=== PATIENT | male | born 1970 | race American Indian/Alaskan Native ===

== ENCOUNTER 2022-10-11 10:43 | Outpatient (REF) | payer MEDICARE, MEDICAID, SELFPAY ==
--- NOTE | ~2022-10-11 | XR_ITS ---
EXAMINATION: XR CHEST CLINICAL INFORMATION: Chronic cough COMPARISON: None available. TECHNIQUE: 2 views of the chest were obtained. FINDINGS: No significant abnormality is noted involving the heart, lungs, mediastinum, bony thorax or soft tissues. XR/XR chest 2V IMPRESSION: Unremarkable examination.
[2022-10-11 12:28] LABS: Mean Corpuscular HGB Conc 33.3 g/dl (31.0-36.0); Mean Corpuscular Volume 95.9 fL (80.0-98.0); Mean Platelet Volume 11.1 fL (9.4-12.4); Platelet Count 179 X10*3/uL (160-400); Red Blood Count 4.69 X10*6/uL (4.60-5.80); Red Cell Distribution Width 11.9 % (11.0-16.0); White Blood Count 6.7 X10*3/uL (4.8-10.8)
[2022-10-11 13:49] LABS: Prostate Specific Antigen Scr 0.37 ng/mL (<0.05-4.0)
[2022-10-11 13:54] LABS: Alanine Aminotransferase 34 U/L (0-40); Albumin Level 4.1 g/dL (3.5-5.0); Alkaline Phosphatase 53 U/L (39-117); Anion Gap 15 (12-20); Aspartate Amino Transferase 28 U/L (5-37); Bilirubin Total 0.5 mg/dL (0.0-1.0); Blood Urea Nitrogen 13 mg/dL (9-16); Calcium 9.4 mg/dL (8.4-10.2); Carbon Dioxide 19 mmol/L (22-29); Chloride 109 mmol/L (96-108); Estimated Glomerular Filt Rate > 60; Glucose Fasting 82 mg/dL (60-99); Potassium 4.3 mmol/L (3.3-5.1); Sodium 139 mmol/L (135-145); Total Protein 6.9 g/dL (6.5-8.0)
== END 2022-10-11 10:44 | disposition home or self-care (01) ==
LOC: HO.XRAY 10:43
PROVIDERS: PCP Physician Assistant; Visit Provider Physician Assistant
DX: Z13.1 Encounter for screening for diabetes mellitus (principal); Z12.5 Encounter for screening for malignant neoplasm of prostate; R05.3 Chronic cough
CPT/HCPCS: 36415; 71046; 80053; 84153; 85027

== ENCOUNTER 2023-12-11 13:48 | Outpatient (AMB) | payer MEDICARE, SELFPAY ==
--- NOTE | 2023-12-11 13:52 | MHC.PC.OV ---
Vital Signs 12/11/23 13:57 Height 5 ft 10.5 in Weight 144 lb 2 oz BMI 20.4 BP 142/90 H Blood Pressure Location Lt brachial Position Sitting Pulse 102 H Pulse Source Pulse Oximeter Pulse Oximetry (%) 98 Oxygen Delivery Method Room Air Intake Visit Reasons: PE - see comments Intake Note: Patient is here today for a physical. Turf Keeper Required: No Accompanied by: Significant Other Allergies carisoprodol [From Soma] Adverse Reaction (Intermediate, Verified 12/11/23 14:02) Lethargy Medication List - Last Reconciled 12/11/23 by Kwasi Kim PA-C albuterol sulfate 90 mcg/actuation 1 inh inhalation QID 30 days budesonide-formoterol 80-4.5 mcg/actuation (Symbicort) 1 inh inhalation BID 30 days dextromethorphan-guaifenesin 5-100 mg/5 mL 10 mL PO Q4-8H PRN 30 days lamotrigine 200 mg PO DAILY 90 days loratadine 10 mg PO DAILY 90 days olanzapine 20 mg PO DAILY 90 days sildenafil 50 mg PO DAILY 90 days Tobacco use date assessed: 12/11/23 Dental Screening Dental Screen Date: 12/11/23 Did you have a dental visit in the last 12 months?: No Did you have a dental problem in the last 6 months where you did not have access to dental care?: No Was dental information given to patient?: Patient declined HPI PE - see comments HPI Details Ye is a 52 -year-old male here today for an annual physical. Patient has a past medical history of anxiety, erectile dysfunction, , tobacco dependency, chronic lumbar spine pain , Bipolar, PTSD. Asthma: reports a chronic cough with some productive sputum. He does report continues to smoke cigarettes. He has stopped using E cigarettes to which he felt has done damage to his lungs. He does use an albuterol inhaler and Symbicort on a p.r.n. basis He reports he is not able to walk as far as he used to without any shortness of breath. .. ..Bipolar disorder:? He has lost his follow-up with his psychiatrist and now has PCP managing his lamotrigine.? He feels his mood has been stable for the past 20 years and would like to stay as current dose. He does have an element of agoraphobia though this has been better as of late. --> he reports he would like to start weaning down on doses of his mental health medications as he feels that his mental health has been in a much better place. He is better relationships with family and loved one and does not feel he needs high doses of antipsychotic and mood stabilizers anymore. . ? .. ? Lumbar spine pain: Patient is followed by [facility] , wears back brace in uses [id number] meds for pain?. Colorectal cancer screening: Had a positive Cologuard in 2022, has yet to follow up with Gastroenterology in declines my offer to be referred. He is not interested in colonoscopy. He is willing to do Cologuard again 2025. Vaccines: Up-to-date with tetanus vaccine, declines flu, COVID pneumonia vaccines [facility] Medical History Nicotine dependence, cigarettes, uncomplicated Surgical History History of hand surgery Social History (Updated 12/11/23 @ 14:08 by Kwasi Kim PA-C) Housing: House Alcohol intake: current Alcohol intake frequency: a few times a month Patient Tobacco Use Status: Current everyday Tobacco user Tobacco use type: Cigarette Cigarettes Per Day: 10 e-Cigarette/Vaping Use: Former Use Second Hand Smoke Exposure: No Substance Use Type: Marijuana service: Yes Current occupational status: disabled Cognitive needs: No Hearing needs: No Vision needs: Yes (glasses) Questionnaire PHQ-9 Over the last 2 weeks, how often have you been bothered by any of the following problems? 1. Little interest or pleasure in doing things: not at all 2. Feeling down, depressed, or hopeless: not at all 3. Trouble falling or staying asleep, or sleeping too much: not at all 4. Feeling tired or having little energy: not at all 5. Poor appetite or overeating: not at all 6. Feeling bad about yourself - or that you are a failure or have let yourself or your family down: not at all 7. Trouble concentrating on things, such as reading the newspaper or watching television: not at all 8. Moving or speaking so slowly that other people could have noticed. Or the opposite - being so fidgety or restless that you have been moving around a lot more than usual: not at all 9. Thoughts that you would be better off or of hurting yourself in some way: not at all Total score: 0 Depression Screening Interpretation: Negative Depression Screening Done: Yes 48826 - PHQ-9 Billing: Yes Source: Developed by Drs. Adan Gaming, Vi Arevalo, Tommy Layne and colleagues, with an educational hannah from [employer]. Thrive Questionnaire Date Thrive assessed: 12/11/23 I am a: Patient What is your living situation today?: I have a steady place to live Within the past 12 months, did the food you bought not last and you didn't have the money to get more?: Never true Within the past 12 months, did you worry whether your food would run out before you got money to buy more?: Never true Do you have trouble paying for medicines?: No Do you have trouble getting transportation to medical appointments?: No Do you have trouble paying your heating and electricity bill?: No Do you have trouble taking care of your child, family member or friend?: No Do you have trouble with day-to-day activities such as bathing, preparing meals, shopping, managing finances, etc.?: No Are you currently unemployed and looking for a job?: No Are you interested in more education?: No Please select the resources that you would like help with: None Currently or been in a relationship where the following occur: No concerns reported THRIVE Score: 0 AUDIT C Alcohol Use Questionnaire (AUDIT-C) 1. How often do you have a drink containing alcohol?: Monthly or less 2. How many drinks containing alcohol do you have on a typical day when you are drinking?: 1 or 2 3. How often do you have six or more drinks on one occasion?: Never Total Score: 1 ISRRAEL-7 AMB Questionnaire ISRRAEL-7 Date ISRRAEL - 7 assessed: 12/11/23 Feeling nervous, anxious, or on edge: 0 = Not at all Not being able to stop or control worryin = Not at all Worrying too much about different things: 0 = Not at all Trouble relaxin = Not at all Being so restless that it is hard to sit still: 0 = Not at all Becoming easily annoyed or irritable: 0 = Not at all Feeling afraid as if something awful might happen: 0 = Not at all Total ISRRAEL-7 score (0-4 normal; 5-9 mild; 10-14 moderate; 15-21 severe): 0 Source: Developed by Drs. Adan Gaming, Vi Arevalo, Tommy Layne and colleagues, with an educational hannah from [employer]. ISRRAEL-7 Assessment Billing ISRRAEL-7 Assessment Tool: ISRRAEL-7 Assessment 36751 Review of Systems Const Denies body aches, Denies chills, Denies excessive sweating, Denies fatigue, Denies fever(s) and Denies headache(s) Eyes Denies blurry vision ENT Denies dysphagia, Denies vertigo, Denies dizziness, Denies headache(s), Denies hearing loss and Denies tinnitus Card Denies chest pain, Denies chest pain with activity, Denies syncope, Denies irregular heart rhythm and Denies dyspnea Resp Denies chest congestion, Denies cough, Denies hemoptysis, Denies dyspnea and Denies wheezing GI Denies abdominal pain, Denies melena, Denies hematochezia, Denies coffee ground emesis, Denies dysphagia, Denies diarrhea, Denies nausea and Denies vomiting Denies difficulty urinating, Denies dysuria, Denies urinary frequency, Denies urinary hesitancy and Denies urinary urgency Musc Denies arthralgias, Denies limited range of motion, Denies muscle cramps and Denies muscle weakness Skin/Breast Denies rash and Denies skin ulcer Neuro Denies Abnormal speech present, Denies confusion, Denies vertigo, Denies dizziness, Denies syncope, Denies headache(s), Denies memory loss and Denies seizure-like activity Psych Denies anxiety, Denies confusion, Denies depression, Denies memory loss, Denies panic attacks and Denies paranoia Endo Denies excessive sweating, Denies fatigue, Denies flushing, Denies polydipsia and Denies polyuria Aller/Immun Denies wheezing Physical exam (Primary Care) Vital Signs: Last Vital Signs Pulse 102 H 12/11/23 13:57 BP 142/90 H 12/11/23 13:57 Pulse Ox 98 12/11/23 13:57 Oxygen Delivery Method Room Air 12/11/23 13:57 BMI result Body Mass Index 20.4 Tobacco/Smoking Status: Tobacco use Status Tobacco use date assessed 12/11/23 12/11/23 14:03 Patient Tobacco Use Status Current everyday Tobacco 12/11/23 14:08 Tobacco use type Cigarette 12/11/23 14:08 e-Cigarette/Vaping Use Former Use 12/11/23 14:08 Are you ready to quit: No Tobacco cessation counseling provided: Yes Items discussed: Nicotine replacement and QuitWorks Relapse Prevention: discussed the importance of a supportive environment, discussed negative mood or depression after quitting, weight gain after smoking is common and discussed dietary, exercise and/or lifestyle changes Number of minutes spent counselin CPT code: 77368 - 4-10 Minutes PHQ-9: PHQ-9 Score PHQ-9: Total score 0 12/11/23 15:59 Depression Screening Interpretation: Negative Thrive Assessment: Date of Thrive Assessment Date Thrive assessed 12/11/23 12/11/23 14:04 Currently or been in a relationship where the following occur: No concerns reported Const General: cooperative, comfortable, no acute distress, alert and awake; No confusion Orientation/consciousness: oriented to person, oriented to place, patient oriented x3 and No confusion HENMT Head: Yes normocephalic Ears: external ears normal and TM's normal bilaterally Face and sinus: No sinus tenderness Mouth: Normal oral and palatal mucosa present and tongue normal Teeth and gingiva: dentition normal and gingiva normal Throat: Yes posterior oropharynx normal, Yes tonsils normal and Yes uvula midline Eyes Conjunctivae: conjunctivae normal Sclerae: sclerae normal Pupils: Equal, round and reactive pupils present EOM: EOMs intact bilaterally Direct Ophthalmoscopy: No no photophobia Neck Neck: Yes no lymphadenopathy, No tender and Yes no JVD Thyroid: Thyroid normal Carotids: no bruits Chest Chest palpation & inspection: no tenderness Resp Effort & Inspection: normal respiratory effort, no audible wheezes, not labored and no stridor Auscultation: no crackles, no rales, no rhonchi and no wheezes Cardio Jugular venous distension: no JVD Rate: regular rate, not bradycardic and not tachycardic Rhythm: regular rhythm Bruits: no carotid bruits Peripheral pulses: Peripheral pulses 2+ throughout GI Inspection: Yes normal to inspection, No abdominal wall ecchymosis and No visible herniation Palpation (GI): Soft to palpation, nontender, no guarding, not rigid and No hepatosplenomegaly present Auscultation: normoactive bowel sounds General: Yes no CVA tenderness Back/Spine/Pelvis Back: no CVA tenderness and No back tenderness Cervical Spine: cervical ROM normal Thoracic/Lumbar Spine: thoracic and lumbar spine normal to inspection, straight leg raise negative bilaterally, No thoraco-lumbar ROM limited and No lumbar spinal tenderness Skin Lesions: no lesions Rashes: no rashes Wounds: no wounds Neuro General: oriented to person, oriented to place, patient oriented x3, CN's II-XI intact bilaterally and No confusion Cranial nerves: Yes Equal, round and reactive pupils present and Yes Normal accommodation reflex present Cognition (Neuro): normal cognition Speech: No Abnormal speech present Gait exam (Neuro): Normal gait present Motor exam (neuro): 5/5 motor strength present throughout Extrem Right upper extremity: full ROM; no cyanosis Left upper extremity: full ROM; no cyanosis Right lower extremity: no edema Left lower extremity: no edema Psych Appearance: grossly normal Mental Status: mental status grossly normal Affect: normal affect Attitude: cooperative Thought process: Normal thought process present Assessment and Plan Assessment & Plan (1) Annual physical exam: Code(s): Z00.00 - Encounter for general adult medical examination without abnormal findings (2) Bipolar depression: Code(s): F31.9 - Bipolar disorder, unspecified Plan: As per HPI patient was followed by psychiatrist who was managing his mood with olanzapine and lamotrigine with decent affect. Has lost his follow-up with Psychiatry now PCP managing mental health medications. Not interested in establishing care with psychiatry or a mental health therapist at this time. Interested in reducing his doses of mental health medication. He feels his mental health has been stable for quite some time and would like to restart reducing his dose of medication --> Will reduce his Lamictal to 175 for 2 weeks, then 150 for 2 weeks then finally down to 100 we will stay at this dose for now. (3) MDD (major depressive disorder), recurrent episode, moderate: Code(s): F33.1 - Major depressive disorder, recurrent, moderate Plan: Patient reports his mental health has been stable. Not speaking with a mental health therapist are seen a psychiatrist at this time. He is interested in reducing doses of his mental health medication. He reports he has stopped using diazepam in opiates and feels he is in a stable place in his life. (4) Asthma: Code(s): J45.909 - Unspecified asthma, uncomplicated Qualifiers: Asthma complication type: uncomplicated Asthma persistence: persistent Asthma severity: mild Qualified Code(s): J45.30 - Mild persistent asthma, uncomplicated Plan: Patient reports his asthma has been manageable. Recently started a maintenance inhaler Symbicort.,, often having coughing fits with productive sputum. He does use albuterol inhaler and Symbicort with decent affect. Unfortunately continues to smoke a half pack of cigarettes daily and does understand he needs to quit smoking. (5) Colon cancer screening: Code(s): Z12.11 - Encounter for screening for malignant neoplasm of colon Plan: He did have positive Cologuard though he is not interested in any further testing at this time. Recommended colonoscopy though he declines. He would do another Cologuard in 3 years (2025) (6) Tobacco dependence: Code(s): F17.200 - Nicotine dependence, unspecified, uncomplicated Plan: Patient does understand he needs to quit smoking as his pulmonary symptoms have gradually gotten worse. (7) Chronic bronchitis: Code(s): J42 - Unspecified chronic bronchitis Qualifiers: Chronic bronchitis type: mucopurulent Qualified Code(s): J41.1 - Mucopurulent chronic bronchitis Plan: Patient seems to have signs and symptoms of chronic bronchitis as he does report having a productive cough worsening over the last several months. Unfortunately continues to smoke a few cigarettes per day. He believes that he cigarettes had done damage to his lungs and would like further evaluation of his lungs. (8) Screening for diabetes mellitus (DM): Code(s): Z13.1 - Encounter for screening for diabetes mellitus Orders: Orders Comprehensive [place]. Panel Fast 12/11/23 Z13.1 - Encounter for screening for diabetes mellitus Complete Blood Count no Diff 12/11/23 F17.210 - Nicotine dependence, cigarettes, uncomplicated Prostate Specific Antigen Scr 12/11/23 Z12.5 - Encounter for screening for malignant neoplasm of prostate, Z13.1 - Encounter for screening for diabetes mellitus Referrals Thoracic/General Surgery Referral F17.210 - Nicotine dependence, cigarettes, uncomplicated Medications: New lamotrigine (Lamictal) 25 mg PO DAILY 28 tabs 0RF 28 days F31.9 - Bipolar disorder, unspecified, J41.1 - Mucopurulent chronic bronchitis olanzapine 10 mg PO DAILY 90 tabs 1RF 90 days F31.9 - Bipolar disorder, unspecified azithromycin For 250 mg dose pack: take 500 mg today (day 1), then 250 mg for 4 days (days 2-5) PO 6 tabs 0RF J41.1 - Mucopurulent chronic bronchitis lamotrigine (Lamictal) 150 mg PO DAILY 30 tabs 1RF 30 days F31.9 - Bipolar disorder, unspecified Refilled albuterol sulfate 90 mcg/actuation 1 inh inhalation QID 8.5 grams 4RF 30 days J45.20 - Mild intermittent asthma, uncomplicated budesonide-formoterol 80-4.5 mcg/actuation (Symbicort) 1 inh inhalation BID 10.2 grams 4RF 30 days J45.20 - Mild intermittent asthma, uncomplicated Discontinued olanzapine Discontinued Reason: Doctor's Order 20 mg PO DAILY 90 days 90 tabs 3RF F33.1 - Major depressive disorder, recurrent, moderate lamotrigine Discontinued Reason: Doctor's Order 200 mg PO DAILY 90 days 90 tabs 3RF F33.1 - Major depressive disorder, recurrent, moderate Coding Level of Care Code Est Pt Prev Care 40-64y(16688) Diagnoses Annual physical exam Z00.00 Bipolar depression F31.9 MDD (major depressive disorder), recurrent episode, moderate F33.1 Mild persistent asthma without complication J45.30 Asthma complication type: uncomplicated Asthma persistence: persistent Asthma severity: mild Colon cancer screening Z12.11 Tobacco dependence F17.200 Mucopurulent chronic bronchitis J41.1 Chronic bronchitis type: mucopurulent Screening for diabetes mellitus (DM) Z13.1 Additional Codes ISRRAEL-7 Assessment Billing - ISRRAEL-7 Assessment Tool: ISRRAEL-7 Assessment 14727 ([id number]) Vital Signs *Quality* - CPT code: 29676 - 4-10 Minutes ([id number])
[2023-12-11 13:57] VITALS: BP 142/90; PULSE 102; O2SAT 98; BMI 20.4
== END 2023-12-11 14:25 | disposition home or self-care (01) ==
PROVIDERS: PCP Physician Assistant; Visit Provider Physician Assistant
DX: Z00.00 Encounter for general adult medical examination without abnormal findings (principal); F33.1 Major depressive disorder, recurrent, moderate; J45.30 Mild persistent asthma, uncomplicated; J41.1 Mucopurulent chronic bronchitis; F17.200 Nicotine dependence, unspecified, uncomplicated
CPT/HCPCS: 99396

== ENCOUNTER 2024-06-03 14:18 | Outpatient (AMB) | payer MEDICARE, SELFPAY ==
--- NOTE | 2024-06-03 14:27 | A.OFFPC_ITS ---
Vital Signs 06/03/24 14:28 Height 5 ft 10.5 in Weight 148 lb 5.938 oz BMI 21.0 BP 158/90 H Blood Pressure Location Lt brachial Position Semi Malave's Pulse 107 H Pulse Source Pulse Oximeter Pulse Oximetry (%) 96 Oxygen Delivery Method Nasal Cannula Oxygen Flow Rate 3 Intake Visit Reasons: Broken jaw Intake Note: Patient is here for hospital discharge follow up. Patient was discharged from [facility] for respiratory issue 05/19/24. Senior Professional Services Consultant Required: No Accompanied by: Environmental Air Specialist Allergies carisoprodol [From Soma] Adverse Reaction (Intermediate, Verified 06/03/24 14:35) Lethargy Tobacco use date assessed: 06/03/24 Dental Screening Dental Screen Date: 06/03/24 Did you have a dental visit in the last 12 months?: Yes Did you have a dental problem in the last 6 months where you did not have access to dental care?: No Was dental information given to patient?: Patient has dentist HPI Broken jaw HPI Details Ye is a 53 -year-old male here today for a follow-up after being discharged from a [place] hospital. Patient has a past medical history of anxiety, erectile dysfunction, , tobacco dependency, chronic lumbar spine pain , Bipolar, PTSD. Most recently admitted to an ICU in [place] while visiting a friend. He reports he had pneumonia and respiratory distress. He mentions he needed chest 2 for drainage of fluid. Unfortunately continues to smoke and now on supplemental oxygen via concentrate her. He reports he was placed on a maintenance inhaler ? Combivent which has helped him with his breathing. He is also in need of a nebulizer to do updraft treatments at home. Bipolar disorder: He does seem to be quite manic today in office. Unclear if there is also substance use at play here. He does report using his lamotrigine and is asking to be placed back on his Ritalin and diazepam. He has seemingly lost his follow up with his prescribing psychiatrist for quite some time now.. Will try to set him up with mental health therapy for evaluation [facility] Medical History Nicotine dependence, cigarettes, uncomplicated Surgical History History of hand surgery Social History (Updated 06/03/24 @ 15:55 by Kwasi Kim PA-C) Housing: House Alcohol intake: current Alcohol intake frequency: a few times a month Patient Tobacco Use Status: Current everyday Tobacco user Tobacco use type: Cigarette Cigarettes Per Day: 10 e-Cigarette/Vaping Use: Former Use Second Hand Smoke Exposure: No Substance Use Type: Marijuana service: Yes Current occupational status: disabled Cognitive needs: No Hearing needs: No Vision needs: Yes (glasses) Questionnaire PHQ-9 Over the last 2 weeks, how often have you been bothered by any of the following problems? 1. Little interest or pleasure in doing things: not at all 2. Feeling down, depressed, or hopeless: not at all 3. Trouble falling or staying asleep, or sleeping too much: not at all 4. Feeling tired or having little energy: not at all 5. Poor appetite or overeating: not at all 6. Feeling bad about yourself - or that you are a failure or have let yourself or your family down: not at all 7. Trouble concentrating on things, such as reading the newspaper or watching television: not at all 8. Moving or speaking so slowly that other people could have noticed. Or the opposite - being so fidgety or restless that you have been moving around a lot more than usual: not at all 9. Thoughts that you would be better off or of hurting yourself in some way: not at all Total score: 0 Depression Screening Interpretation: Negative Depression Screening Done: Yes 30848 - PHQ-9 Billing: Yes Source: Developed by Drs. Adan Gaming, Vi Arevalo, Tommy Layne and colleagues, with an educational hannah from [employer]. Thrive Questionnaire Date Thrive assessed: 06/03/24 I am a: Patient What is your living situation today?: I have a steady place to live Within the past 12 months, did the food you bought not last and you didn't have the money to get more?: Never true Within the past 12 months, did you worry whether your food would run out before you got money to buy more?: Never true Do you have trouble paying for medicines?: No Do you have trouble getting transportation to medical appointments?: No Do you have trouble paying your heating and electricity bill?: No Do you have trouble taking care of your child, family member or friend?: No Do you have trouble with day-to-day activities such as bathing, preparing meals, shopping, managing finances, etc.?: No Are you currently unemployed and looking for a job?: No Are you interested in more education?: No Please select the resources that you would like help with: None Currently or been in a relationship where the following occur: No concerns reported THRIVE Score: 0 AUDIT C Alcohol Use Questionnaire (AUDIT-C) 1. How often do you have a drink containing alcohol?: Never 3. How often do you have six or more drinks on one occasion?: Never Total Score: 0 ISRRAEL-7 AMB Questionnaire ISRRAEL-7 Date ISRRAEL - 7 assessed: 06/03/24 Feeling nervous, anxious, or on edge: 3 = Nearly every day Not being able to stop or control worryin = More than half the days Worrying too much about different things: 3 = Nearly every day Trouble relaxin = Nearly every day Being so restless that it is hard to sit still: 1 = Several days Becoming easily annoyed or irritable: 3 = Nearly every day Feeling afraid as if something awful might happen: 2 = More than half the days Total ISRRAEL-7 score (0-4 normal; 5-9 mild; 10-14 moderate; 15-21 severe): 17 Source: Developed by Drs. Adan Gaming, Vi Arevalo, Tommy Layne and colleagues, with an educational hannah from [employer]. ISRRAEL-7 Assessment Billing ISRRAEL-7 Assessment Tool: ISRRAEL-7 Assessment 80294 Review of Systems Const Denies headache(s) Eyes Denies loss of vision ENT Denies vertigo, Denies dizziness, Denies headache(s) and Denies sore throat Card Denies chest pain, Denies leg edema and Denies lightheadedness Resp Denies cough, Denies hemoptysis and Denies wheezing GI Denies abdominal pain, Denies melena, Denies constipation, Denies diarrhea and Denies vomiting Denies dysuria, Denies urinary frequency and Denies urinary urgency Musc Denies arthralgias, Denies joint swelling, Denies numbness and Denies tingling Neuro Denies Abnormal speech present, Denies behavioral changes, Denies vertigo, Denies dizziness, Denies headache(s), Denies loss of vision, Denies memory loss, Denies numbness and Denies tingling Psych Denies anxiety, Denies behavioral changes, Denies depression, Denies memory loss and Denies panic attacks Marciano/Lymph Denies easy bleeding and Denies easy bruising Aller/Immun Denies wheezing Physical exam (Primary Care) Vital Signs: Oxygen Delivery Method Room Air 06/03/24 14:28 BMI result Body Mass Index 21.0 Tobacco/Smoking Status: Tobacco use Status Tobacco use date assessed 12/11/23 06/03/24 14:27 Patient Tobacco Use Status Current everyday Tobacco 06/03/24 14:27 Tobacco use type Cigarette 06/03/24 14:27 e-Cigarette/Vaping Use Former Use 06/03/24 14:27 Are you ready to quit: No Tobacco cessation counseling provided: Yes Items discussed: Nicotine replacement Relapse Prevention: discussed the importance of a supportive environment, discussed negative mood or depression after quitting, weight gain after smoking is common and discussed dietary, exercise and/or lifestyle changes Number of minutes spent counselin CPT code: 43540 - 4-10 Minutes Depression Screening Interpretation: Negative Thrive Assessment: Date of Thrive Assessment Date Thrive assessed 12/11/23 06/03/24 14:27 Currently or been in a relationship where the following occur: No concerns reported Const Other: Appears to be frail and thin, jaw is clenched Patient wearing nasal cannula supplemental oxygen. General: no acute distress, alert and awake Nutritional Appearance: well nourished Orientation/consciousness: oriented to person, oriented to place and oriented to time HENMT Ears: TM's normal bilaterally General nose exam: Normal nasal mucous membranes and turbinates present Eyes Conjunctivae: conjunctivae normal Sclerae: sclerae normal Pupils: Equal, round and reactive pupils present Neck Neck: Yes no lymphadenopathy and Yes no JVD Thyroid: Thyroid normal Carotids: no bruits Resp Effort & Inspection: normal respiratory effort and not tachypneic Auscultation: no crackles, no rales, no rhonchi and no wheezes Cardio Rate: regular rate Rhythm: regular rhythm Heart sounds: no murmurs and normal S1 and S2 GI Palpation (GI): Soft to palpation, nontender, no hepatomegaly and no splenomegaly Auscultation: normal bowel sounds Skin General skin exam: no rashes or lesions noted and dry skin Neuro General: oriented to person, oriented to place and oriented to time Cranial nerves: Yes Equal, round and reactive pupils present Speech: No Abnormal speech present Gait exam (Neuro): Normal gait present Motor exam (neuro): no tremor noted Extrem Right upper extremity: full ROM Left upper extremity: full ROM Right lower extremity: full ROM; no edema Left lower extremity: full ROM; no edema Psych Other: PATIENT APPEARS SOMEWHAT DISHEVELED Appearance: disheveled Mental Status: mental status grossly normal Speech and movement: Normal speech and movement present Affect: normal affect Attitude: cooperative Thought process: Flight of ideas present and Tangential thought process present Coding Level of Care Code Est Pt Level 4 (82603) Diagnoses Centrilobular emphysema J43.2 COPD type: emphysema Emphysema type: centrilobular Nicotine dependence, cigarettes, uncomplicated F17.210 Positive colorectal cancer screening using Cologuard test R19.5 Bipolar depression F31.9 Additional Codes ISRRAEL-7 Assessment Billing - ISRRAEL-7 Assessment Tool: ISRRAEL-7 Assessment 63692 ([id number]) PHQ-9 - 41750 - PHQ-9 Billing: Yes ([id number]) Vital Signs *Quality* - CPT code: 53058 - 4-10 Minutes ([id number]) Assessment & Plan Assessment & Plan (1) COPD (chronic obstructive pulmonary disease): Code(s): J44.9 - Chronic obstructive pulmonary disease, unspecified Category: Medical Qualifiers: COPD type: emphysema Emphysema type: centrilobular Qualified Code(s): J43.2 - Centrilobular emphysema Plan: Patient appears to have pretty severe COPD. He is now using supplemental oxygen 3 L per minute via nasal cannula to prevent hypoxia. He apparently was in the ICU while visiting [place] and received chest tube in the ICU due to a pulmonary effusion. He was found to have a bad pneumonia. [place] [address] and was considered to be septic. Will supply patient with a nebulizer script . Will try to set him up with pulmonology here in [place] further evaluation and recommendations on maintenance inhaler. (2) Nicotine dependence, cigarettes, uncomplicated: Code(s): F17.210 - Nicotine dependence, cigarettes, uncomplicated Category: Medical Plan: Unfortunately patient continues to smoke due to his stress and anxiety. He is willing to try nicotine patches to quit smoking. (3) Positive colorectal cancer screening using Cologuard test: Code(s): R19.5 - Other fecal abnormalities Category: Medical Plan: Is in need of colonoscopy. During his recent hospitalization and [place] due to a pulmonary issue he was found to have hematochezia. Did have a positive Cologuard in 2022. He is now willing to try colonoscopy. Will likely need pulmonology clearance as well. (4) Bipolar depression: Code(s): F31.9 - Bipolar disorder, unspecified Category: Medical Plan: Patient appears to be suffering with dysregulated mood. He is back on lamotrigine though is asking to be placed back on Ritalin diazepam for his anxiety. Unclear if there is illicit drug use also playing a role. He has lost his follow up with Psychiatry. Will refer to outpatient Psychiatry for evaluation and recommendations on patient's bipolar disorder/mood disorder and ADD Orders: Referrals Psychiatry Outpatient Consultation Service F31.9 - Bipolar disorder, unspecified Pulmonology Referral J43.2 - Centrilobular emphysema Gastroenterology Referral R19.5 - Other fecal abnormalities Medications: New albuterol sulfate 2.5 mg (3 mL) inhalation Q6H 30 days PRN 360 mL 0RF shortness of breath or wheezing J43.2 - Centrilobular emphysema guaifenesin ER 600 mg PO BID 30 days 60 tabs 3RF J43.2 - Centrilobular emphysema [nebulizer machine] As directed 1 ea 0RF J43.2 - Centrilobular emphysema ipratropium-albuterol 20-100 mcg/actuation (Combivent Respimat) 1 puff inhalation Q6H 30 days 4 grams 1RF J43.2 - Centrilobular emphysema nicotine 1 patch transdermal DAILY 14 days 14 ea 0RF F17.200 - Nicotine dependence, unspecified, uncomplicated, F17.210 - Nicotine dependence, cigarettes, uncomplicated nicotine 1 patch transdermal DAILY 14 days 14 ea 0RF F17.200 - Nicotine dependence, unspecified, uncomplicated, F17.210 - Nicotine dependence, cigarettes, uncomplicated Refilled albuterol sulfate 90 mcg/actuation 1 inh inhalation QID 30 days 8.5 grams 4RF J45.20 - Mild intermittent asthma, uncomplicated On Hold budesonide-formoterol 80-4.5 mcg/actuation (Symbicort) Hold Comment: Doctor's Order 1 inh inhalation BID 30 days 10.2 grams 4RF J45.20 - Mild intermittent asthma, uncomplicated
[2024-06-03 14:28] VITALS: BP 158/90; PULSE 107; O2SAT 96; BMI 21.0
== END 2024-06-03 15:13 | disposition home or self-care (01) ==
PROVIDERS: PCP Physician Assistant; Visit Provider Physician Assistant
DX: J43.2 Centrilobular emphysema (principal); F17.210 Nicotine dependence, cigarettes, uncomplicated; R19.5 Other fecal abnormalities; F31.9 Bipolar disorder, unspecified

== ENCOUNTER → 2024-06-03 14:18 | Outpatient (BNVA) | payer MEDICARE, SELFPAY | PROVIDERS: PCP Physician Assistant; Visit Provider Physician Assistant | DX: J43.2 Centrilobular emphysema (principal); R19.5 Other fecal abnormalities; F31.9 Bipolar disorder, unspecified; F17.210 Nicotine dependence, cigarettes, uncomplicated; Z71.6 Tobacco abuse counseling | CPT/HCPCS: 96127; 99212 ==

== ENCOUNTER 2024-06-18 14:53 | Outpatient (REF) | payer MEDICARE, SELFPAY | END 2024-06-18 14:54 | disposition home or self-care (01) | LOC: HO.LNP 14:53 | PROVIDERS: PCP Physician Assistant; Referring Provider Physician Assistant; Visit Provider Nurse Practitioner Family | DX: J43.2 Centrilobular emphysema (principal); R05.3 Chronic cough; J45.30 Mild persistent asthma, uncomplicated; F17.210 Nicotine dependence, cigarettes, uncomplicated; Z87.09 Personal history of other diseases of the respiratory system | CPT/HCPCS: 87070; 87205; 99202 ==

== ENCOUNTER 2024-06-18 14:53 | Outpatient (AMB) | payer MEDICARE, SELFPAY ==
[2024-06-18 14:54] VITALS: PULSE 112; O2SAT 99; BMI 21.6
--- NOTE | 2024-06-18 14:54 | MHC.OFFVIS ---
Vital Signs 06/18/24 14:54 Height 5 ft 10.5 in Weight 153 lb BMI 21.6 Pulse 112 H Pulse Source Pulse Oximeter Pulse Oximetry (%) 99 Oxygen Delivery Method Nasal Cannula Oxygen Flow Rate 2 Intake Visit Reasons: Centrilobular Emphysema Sharemilker Required: No Overedge Sewer: Overedge Sewer offered & declined Accompanied by: Self / Same As Patient Allergies carisoprodol [From Soma] Adverse Reaction (Intermediate, Verified 06/18/24 15:00) Lethargy Medication List - Last Reconciled 06/18/24 by Linette Trejo LPN albuterol sulfate 90 mcg/actuation 1 inh inhalation QID 30 days albuterol sulfate 2.5 mg (3 mL) inhalation Q6H PRN 30 days budesonide-formoterol 80-4.5 mcg/actuation (Symbicort) 1 inh inhalation BID 30 days dextromethorphan-guaifenesin 5-100 mg/5 mL 10 mL PO Q4-8H PRN 30 days guaifenesin ER 600 mg PO BID 30 days ipratropium-albuterol 20-100 mcg/actuation (Combivent Respimat) 1 puff inhalation Q6H 30 days lamotrigine (Lamictal) 25 mg PO DAILY 28 days lamotrigine (Lamictal) 150 mg PO DAILY 30 days loratadine 10 mg PO DAILY 90 days [nebulizer machine As directed] nicotine 1 patch transdermal DAILY 14 days nicotine 1 patch transdermal DAILY 14 days olanzapine 10 mg PO DAILY 90 days sildenafil 50 mg PO DAILY 90 days HPI HPI Centrilobular Emphysema: Details: Ye is a 53 year old male, current smoker with 25+ pack year history with underlying asthma, anxiety, Bipolar, and PTSD. He was referred by PCP for pulmonary evaluation after recent hospital admission 05/14-05/19 in [place] for acute on chronic respiratory failure secondary to asthma/COPD exacerbation and Pneumococcal pneumonia. CTA revealed multifocal airspace disease consistent with PNA, urine pneumococcal antigen + and started on Rocephin as well as Azithromycin. He was discharged with abx and started on Symbicort, Spiriva and weaned down to 1.5-2L supplemental oxygen. At rest patient 86% on room air and 90% on 1L supplemental oxygen. He also notes during this stay he had bilateral pleural effusions s/p thoracentesis however not noted in records. He denies prior need for supplemental oxygen previously and denies intubation related to respiratory distress. He reports respiratory symptoms started in the 90s related to service however patient did not want to disclose information regarding exposures. He has been using albuterol and combivent PRN, despite being prescribed both Spiriva and Symbicort after hospital discharge. Patient is a poor historian and often difficult to follow conversation. Upon arrival to room patient 99% on 2L of supplemental oxygen with initial intake, however removed nasal cannula and O2 was rechecked 10 minutes later, 97% on room air. He continues to report productive cough with white sputum and chest congestion. Sputum sent during visit. [facility] Medical History Nicotine dependence, cigarettes, uncomplicated Surgical History History of hand surgery Social History Housing: House Alcohol intake: current Alcohol intake frequency: a few times a month Patient Tobacco Use Status: Current everyday Tobacco user Tobacco use type: Cigarette Cigarettes Per Day: 10 e-Cigarette/Vaping Use: Former Use Second Hand Smoke Exposure: No Substance Use Type: Marijuana service: Yes Current occupational status: disabled Cognitive needs: No Hearing needs: No Vision needs: Yes (glasses) Review of Systems Const Denies chills, Denies excessive sweating, Denies fever(s), Denies headache(s) and Denies night sweats Eyes Denies dry eyes, Denies irritation and Denies itchy eyes ENT Reports Normal hearing present, Denies headache(s), Denies nasal congestion, Denies nasal discharge, Denies post nasal drip and Denies sore throat Card Denies chest pain, Denies chest pain at rest, Denies chest pain with activity, Denies claudication, Denies leg edema, Denies orthopnea and Denies paroxysmal nocturnal dyspnea Resp Denies chest congestion, Denies excessive phlegm production, Denies pain on inspiration, Denies pain with cough and Denies stridor Musc Denies myalgias Neuro Reports Normal hearing present and Denies headache(s) Endo Denies excessive sweating Marciano/Lymph Denies lymphadenopathy Aller/Immun Denies itchy eyes and Denies seasonal rhinorrhea Physical Exam Vital Signs: Last Vital Signs Pulse 112 H 06/18/24 14:54 Pulse Ox 99 06/18/24 14:54 Oxygen Delivery Method Nasal Cannula 06/18/24 14:54 Oxygen Flow Rate 2 06/18/24 14:54 BMI result Body Mass Index 21.6 Const General: cooperative, healthy appearing, comfortable, no acute distress, well developed and alert Orientation/consciousness: patient oriented x3 Limitations: no limitations HEENT Head: Yes normal to inspection, Yes normocephalic and Yes atraumatic Ears: hearing grossly normal bilaterally and external ears normal Eyes General: appearance normal, both eyes and all related structures Eyelids: Yes eyelids normal Sclerae: sclerae normal EOM: EOMs intact bilaterally Neck Neck: Yes normal visual inspection and Yes no lymphadenopathy Lymphatic: no lymphadenopathy noted Chest Chest palpation & inspection: normal inspection of the chest Resp Other: RLL inspiratory crackles Effort & Inspection: normal respiratory effort, able to speak in complete sentences, no audible wheezes, no cough, no stridor, not tachypneic, no tripod positioning and no use of accessory muscles Cardio Jugular venous distension: no JVD Rhythm: regular rhythm Skin Other: warm, dry General skin exam: no rashes or lesions noted Neuro General: patient oriented x3 Cranial nerves: Yes Normal hearing present Cognition (Neuro): normal cognition Gait exam (Neuro): Normal gait present Extrem General: Yes normal to inspection, Yes capillary refill normal, Yes no clubbing, cyanosis or edema and Yes no pedal edema Psych Appearance: grossly normal and well kempt Speech and movement: Normal speech and movement present and Clear speech present Attitude: cooperative Insight: Fair insight present (Psych) Judgement: Fair judgement present (Psych) Assessment & Plan Assessment & Plan (1) Cough: Code(s): R05.9 - Cough, unspecified Category: Medical Qualifiers: Cough type: chronic Qualified Code(s): R05.3 - Chronic cough (2) COPD (chronic obstructive pulmonary disease): Code(s): J44.9 - Chronic obstructive pulmonary disease, unspecified Category: Medical Qualifiers: COPD type: emphysema Emphysema type: centrilobular Qualified Code(s): J43.2 - Centrilobular emphysema (3) Asthma: Code(s): J45.909 - Unspecified asthma, uncomplicated Category: Medical Qualifiers: Asthma complication type: uncomplicated Asthma persistence: persistent Asthma severity: mild Qualified Code(s): J45.30 - Mild persistent asthma, uncomplicated (4) History of acute respiratory failure: Code(s): Z87.09 - Personal history of other diseases of the respiratory system Category: Medical (5) Nicotine dependence, cigarettes, uncomplicated: Code(s): F17.210 - Nicotine dependence, cigarettes, uncomplicated Category: Medical Plan Ye presents for pulmonary evaluation after recent admission for acute respiratory failure secondary to pneumococcal pneumonia and asthma/COPD exacerbation. On exam today, patient with RLL inspiratory crackles, will send for CXR today and sputum culture sent. Encouraged patient to start Symbicort 160 mcg and discussed importance of good oral hygiene to prevent thrush. Will send for chest CT in 6-8 weeks to assess for resolution of PNA. Will send for PFT to assess severity of obsructive defect. Smoking cessation reviewed. Will schedule 6MWT. All questions were answered and patient is in agreement of plan. Will follow up in 4 weeks or sooner if needed. Orders: Orders XR chest 2V 06/18/24 R05.3 - Chronic cough CT chest wo IV con 4 Weeks Z87.01 - Personal history of pneumonia (recurrent) Sputum Cult + Gram stain 06/18/24 R05.3 - Chronic cough PFT pulmonary function test Today J43.2 - Centrilobular emphysema, J45.30 - Mild persistent asthma, uncomplicated Medications: New budesonide-formoterol 160-4.5 mcg/actuation (Symbicort) 2 puffs inhalation Q12H 10.2 grams 6RF Discontinued budesonide-formoterol 80-4.5 mcg/actuation (Symbicort) Discontinued Reason: Patient Completed Course 1 inh inhalation BID 30 days 10.2 grams 4RF J45.20 - Mild intermittent asthma, uncomplicated Coding Level of Care Code New Pt Level 4 (84416) Complex EM visit Add On G2211 Diagnoses Chronic cough R05.3 Cough type: chronic Centrilobular emphysema J43.2 COPD type: emphysema Emphysema type: centrilobular Mild persistent asthma without complication J45.30 Asthma complication type: uncomplicated Asthma persistence: persistent Asthma severity: mild History of acute respiratory failure Z87.09 Nicotine dependence, cigarettes, uncomplicated F17.210
== END 2024-06-18 15:39 | disposition home or self-care (01) ==
LOC: HO.HPSW 14:53
PROVIDERS: PCP Physician Assistant; Referring Provider Physician Assistant; Visit Provider Nurse Practitioner Family
DX: R05.3 Chronic cough (principal); J43.2 Centrilobular emphysema; J45.30 Mild persistent asthma, uncomplicated; Z87.09 Personal history of other diseases of the respiratory system; F17.210 Nicotine dependence, cigarettes, uncomplicated
CPT/HCPCS: 99204; G2211

== ENCOUNTER 2024-07-01 11:24 | Outpatient (AMB) | payer MEDICARE, SELFPAY ==
--- NOTE | 2024-07-01 11:27 | MHC.PC.OV ---
Vital Signs 07/01/24 11:28 Height 5 ft 10.5 in Weight 151 lb BMI 21.4 BP 124/90 H Blood Pressure Location Lt brachial Position Sitting Pulse 104 H Pulse Source Pulse Oximeter Temp 97.1 F Temp Source Temporal Artery Scan Pulse Oximetry (%) 96 Oxygen Delivery Method Room Air Intake Visit Reasons: f/u COPD / mental health Driver License Examiner Required: No Accompanied by: Son Allergies carisoprodol [From Soma] Adverse Reaction (Intermediate, Verified 07/01/24 11:37) Lethargy Medication List - Last Reconciled 07/01/24 by Kwasi Kim PA-C albuterol sulfate 90 mcg/actuation 1 inh inhalation QID 30 days albuterol sulfate 2.5 mg (3 mL) inhalation Q6H PRN 30 days budesonide-formoterol 160-4.5 mcg/actuation (Symbicort) 2 puffs inhalation Q12H dextromethorphan-guaifenesin 5-100 mg/5 mL 10 mL PO Q4-8H PRN 30 days guaifenesin ER 600 mg PO BID 30 days ipratropium-albuterol 20-100 mcg/actuation (Combivent Respimat) 1 puff inhalation Q6H 30 days lamotrigine (Lamictal) 25 mg PO DAILY 28 days lamotrigine (Lamictal) 150 mg PO DAILY 30 days lidocaine 5% 1 patch topical DAILY 30 days loratadine 10 mg PO DAILY 90 days [Manual wheelchair As directed] [nebulizer machine As directed] nicotine 1 patch transdermal DAILY 14 days nicotine 1 patch transdermal DAILY 14 days olanzapine 10 mg PO DAILY 90 days sildenafil 50 mg PO DAILY 90 days Tobacco use date assessed: 06/03/24 Dental Screening Dental Screen Date: 06/03/24 HPI f/u COPD / mental health HPI Details Ye is a 53 -year-old male here today for a follow-up visit. Patient has a past medical history of anxiety, erectile dysfunction, , tobacco dependency, chronic lumbar spine pain , Bipolar, PTSD. Bipolar disorder: He does seem to be quite manic today in office. Unclear if there is also substance use at play here. He does report using his lamotrigine and is asking to be placed back on his Ritalin and diazepam. He has seemingly lost his follow up with his prescribing psychiatrist for quite some time now.. Currently trying to set him up with psychiatric evaluation COPD: Has followed up with pulmonology and sputum culture done. He will be getting a 6 to 8 week follow-up CT to assess for resolution of his pneumonia. He will be sent for pulmonary function testing in his 6 minute walk test. He reports recently having better pulmonary status. He feels that since his admission in [place] ICU and treatment his breathing has been better than it has been in 30 years. Unfortunately still smoking and does use nicotine patch which has helped him reduce his smoking to 3 cigarettes per day [facility] Medical History Nicotine dependence, cigarettes, uncomplicated Surgical History History of hand surgery Social History Housing: House Alcohol intake: current Alcohol intake frequency: a few times a month Patient Tobacco Use Status: Current everyday Tobacco user Tobacco use type: Cigarette Cigarettes Per Day: 10 e-Cigarette/Vaping Use: Former Use Second Hand Smoke Exposure: No Substance Use Type: Marijuana service: Yes Current occupational status: disabled Cognitive needs: No Hearing needs: No Vision needs: Yes (glasses) Questionnaire Thrive Questionnaire Date Thrive assessed: 06/03/24 ISRRAEL-7 AMB Questionnaire ISRRAEL-7 Date ISRRAEL - 7 assessed: 06/03/24 Source: Developed by Drs. Adan Gaming, Vi Arevalo, Tommy Layne and colleagues, with an educational hannah from [employer]. Review of Systems Const Denies headache(s) Eyes Denies loss of vision ENT Denies vertigo, Denies dizziness, Denies headache(s) and Denies sore throat Card Denies chest pain, Denies leg edema and Denies lightheadedness Resp Denies cough, Denies hemoptysis and Denies wheezing GI Denies abdominal pain, Denies melena, Denies constipation, Denies diarrhea and Denies vomiting Denies dysuria, Denies urinary frequency and Denies urinary urgency Musc Denies arthralgias, Denies joint swelling, Denies numbness and Denies tingling Neuro Denies Abnormal speech present, Denies behavioral changes, Denies vertigo, Denies dizziness, Denies headache(s), Denies loss of vision, Denies memory loss, Denies numbness and Denies tingling Psych Denies anxiety, Denies behavioral changes, Denies depression, Denies memory loss and Denies panic attacks Marciano/Lymph Denies easy bleeding and Denies easy bruising Aller/Immun Denies wheezing Physical exam (Primary Care) Vital Signs: Last Vital Signs Temp 97.1 F 07/01/24 11:28 Pulse 104 H 07/01/24 11:28 BP 124/90 H 07/01/24 11:28 Pulse Ox 96 07/01/24 11:28 Oxygen Delivery Method Room Air 07/01/24 11:28 BMI result Body Mass Index 21.4 Tobacco/Smoking Status: Tobacco use Status Tobacco use date assessed 06/03/24 07/01/24 11:29 Patient Tobacco Use Status Current everyday Tobacco 07/01/24 11:29 Tobacco use type Cigarette 07/01/24 11:29 e-Cigarette/Vaping Use Former Use 07/01/24 11:29 Are you ready to quit: Yes Tobacco cessation counseling provided: Yes Items discussed: Nicotine replacement Relapse Prevention: discussed the importance of a supportive environment, discussed negative mood or depression after quitting, weight gain after smoking is common and discussed dietary, exercise and/or lifestyle changes Number of minutes spent counselin CPT code: 29858 - 4-10 Minutes Thrive Assessment: Date of Thrive Assessment Date Thrive assessed 06/03/24 07/01/24 11:29 Const General: healthy appearing, no acute distress, alert and awake Nutritional Appearance: well nourished Orientation/consciousness: oriented to person, oriented to place and oriented to time HENMT Ears: TM's normal bilaterally General nose exam: Normal nasal mucous membranes and turbinates present Eyes Conjunctivae: conjunctivae normal Sclerae: sclerae normal Pupils: Equal, round and reactive pupils present Neck Neck: Yes no lymphadenopathy and Yes no JVD Thyroid: Thyroid normal Carotids: no bruits Resp Effort & Inspection: normal respiratory effort and not tachypneic Auscultation: no crackles, no rales, no rhonchi and no wheezes Cardio Rate: regular rate Rhythm: regular rhythm Heart sounds: no murmurs and normal S1 and S2 GI Palpation (GI): Soft to palpation, nontender, no hepatomegaly and no splenomegaly Auscultation: normal bowel sounds Skin General skin exam: no rashes or lesions noted and dry skin Neuro General: oriented to person, oriented to place and oriented to time Cranial nerves: Yes Equal, round and reactive pupils present Speech: No Abnormal speech present Gait exam (Neuro): Normal gait present Motor exam (neuro): no tremor noted Extrem Right upper extremity: full ROM Left upper extremity: full ROM Right lower extremity: full ROM; no edema Left lower extremity: full ROM; no edema Psych Mental Status: mental status grossly normal Speech and movement: Normal speech and movement present Affect: normal affect Attitude: cooperative Thought process: Normal thought process present Coding Level of Care Code Est Pt Level 4 (58754) Diagnoses Centrilobular emphysema J43.2 COPD type: emphysema Emphysema type: centrilobular Nicotine dependence, cigarettes, uncomplicated F17.210 Bipolar depression F31.9 Lumbar disc disease M51.9 Additional Codes Vital Signs *Quality* - CPT code: 10951 - 4-10 Minutes ([id number]) Assessment & Plan Assessment & Plan (1) COPD (chronic obstructive pulmonary disease): Code(s): J44.9 - Chronic obstructive pulmonary disease, unspecified Category: Medical Qualifiers: COPD type: emphysema Emphysema type: centrilobular Qualified Code(s): J43.2 - Centrilobular emphysema Plan: Patient appears to have pretty severe COPD. Today in office without his supplemental nasal cannula O2. Satting at 96%. Has followed up with pulmonology and will be getting CT chest to evaluate for resolution of his pneumonia. Sputum culture has been done with showing Gram-positive cocci. He will be due for pulmonary function test as well. He reports he is doing much better, has been using Spiriva Handy inhaler and would like a refill on this. He also has access to his albuterol inhaler and nebulizer. Will supply patient with a paper Rx for a AeroChamber spacer. (2) Nicotine dependence, cigarettes, uncomplicated: Code(s): F17.210 - Nicotine dependence, cigarettes, uncomplicated Category: Medical Plan: Unfortunately patient continues to smoke due to his stress and anxiety. He has been using nicotine patches which has allowed him to lower the amount of cigarette smoking he is doing. (3) Bipolar depression: Code(s): F31.9 - Bipolar disorder, unspecified Category: Medical Plan: Patient appears to be suffering with dysregulated mood. He is back on lamotrigine though is asking to be placed back on Ritalin diazepam for his anxiety. He has lost his follow up with Psychiatry. Will refer to outpatient Psychiatry for evaluation and recommendations on patient's bipolar disorder/mood disorder and ADD (4) Lumbar disc disease: Code(s): M51.9 - Unspecified thoracic, thoracolumbar and lumbosacral intervertebral disc disorder Category: Medical Plan: Patient has a long history of lower back pain due to lumbar disc disease. He is looking to reestablish care with his physical medication/pain doctor to restart on pain management. Medications: New inhalational spacing device (Aerochamber MV spacer) As directed 1 ea 0RF J43.2 - Centrilobular emphysema ferrous sulfate 325 mg PO DAILY 90 tabs 1RF 90 days D50.9 - Iron deficiency anemia, unspecified tiotropium bromide (Spiriva with HandiHaler) puncture 1 cap using device; one dose = 2 inhalations 1 cap inhalation DAILY 30 inhalations 1RF 30 days J43.2 - Centrilobular emphysema [DONJOY BACK BRACE] As directed 1 ea 0RF M51.9 - Unspecified thoracic, thoracolumbar and lumbosacral intervertebral disc disorder, M54.50 - Low back pain, unspecified
[2024-07-01 11:28] VITALS: BP 124/90; PULSE 104; TEMP 36.2; O2SAT 96; BMI 21.4
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
--- OUTSIDE RECORDS SUMMARY | 2024-07-01 12:43 | XMS_ITS | Clinical Summary ---
Author Organization [facility] Address [phone] [place] [address] Care Team Providers Care Assistant Project Engineer Name Role Phone Pcp, Unknown Primary Care Provider Unavailabl e Allergies No known active allergies Social History Tobacco Use Types Packs/Day Years Used Date Smoking Tobacco: Never Assessed Education Answer Date Recorded Are you interested in more education? Not on nino e 09/06/2022 Are you concerned about learning? Not on file 09/06/2022 No 09/06/2022 No 09/06/2022 Digital Access Answer Date Recorded No 10/05/2022 No 10/05/2022 No 10/05/2022 Reliable internet access at home? Not on file 10/05/2022 Device with a working camera? Not on file Intimate Partner Violence Answer Date R ecorded Are you denied basic needs s uch as food, clothing, or medical care? No 01/08/2024 In the past 12 months have y ou been in a relationship with a person who hurts, threatens, or tries to control you? No 01/08/2024 Are you denied basic needs s uch as food, clothing, or medical care? No 01/08/2024 In the past 12 months have y ou been in a relationship with a person who hurts, threatens, or tries to control you? No 01/08/2024 Sex and Gender Information Value Date Recorded Sex Assigned at Not on file Gender Identity Not on file Sexual Orientation Not on file Last Filed Vital Signs Vital Sign Reading Time Taken Comments Blood Pressure 183/109 01/08/2024 3:19 PM EDT Pulse 150 01/08/2024 3:19 PM EDT Temperature 36.4 ??C (97.5 ??F) 01/08/2024 3:19 PM ED T Respiratory Rate 18 01/08/2024 3:19 PM EDT Oxygen Saturation 97% 01/08/2024 3:19 PM EDT Inhaled Oxygen Concentration - - Weight 74.8 kg (165 lb) 01/08/2024 3:19 PM EDT Height 180.3 cm (5' 11 ) 01/08/2024 3:19 PM EDT Body Mass Index 23.01 01/08/2024 3:19 PM EDT Plan of Treatment Health Maintenance Due Date Last Done Comments LIPID PANEL 1970 DEPRESSION SCREENING 1982 SMOKING Hx and SMOKELESS TOB ACCO SCREENING 12/27/1983 HEPATITIS B SCREENING 1988 HEPATITIS C SCREENING 1988 HIV ONE-TIME SCREENING (18-6 5 YEARS) 1988 HEPATITIS B VACCINES (1 of 3 - 19+ 3-dose series) 1989 COLOGUARD 12/27/2015 COLONOSCOPY 12/27/2015 COLORECTAL CANCER SCREENING 12/27/2015 FIT TEST 12/27/2015 FOBT 12/27/2015 SIGMOIDOSCOPY 12/27/2015 VIRTUAL COLONOSCOPY 12/27/2015 PNEUMOCOCCAL VACCINES (50+ y ears) (1 of 1 - PCV) 2020 ZOSTER VACCINES (1 of 2) 2020 INFLUENZA VACCINE (#1) 2023 COVID-19 VACCINE (1 - 2023-2 5 season) 2024 Adult Td,Tdap Booster 12/05/2025 12/06/2015 HEPATITIS A VACCINES Aged Out No long er eligible based on patient's age to complete this topic HIB VACCINES Aged Out No longer eligi ble based on patient's age to complete this topic MENINGOCOCCAL VACCINES (ACWY) Aged Out No longer eligible based on patient's age to complete this topic Medical Devices Not on file Care Teams Assistant Project Engineer Relationship Specialty Start Date End Date Pcp, Unknown PCP - General 01/08/24 Additional Source Comments The information contained in this document represents components of the legal health record. It is not the complete legal health record.[facility]
== END 2024-07-01 12:10 | disposition home or self-care (01) ==
PROVIDERS: PCP Physician Assistant; Visit Provider Physician Assistant
DX: J43.2 Centrilobular emphysema (principal); F17.210 Nicotine dependence, cigarettes, uncomplicated; F31.9 Bipolar disorder, unspecified; M51.9 Unspecified thoracic, thoracolumbar and lumbosacral intervertebral disc disorder

== ENCOUNTER → 2024-07-01 11:24 | Outpatient (BNVA) | payer MEDICARE, SELFPAY | PROVIDERS: PCP Physician Assistant; Visit Provider Physician Assistant | DX: J43.2 Centrilobular emphysema (principal); F31.9 Bipolar disorder, unspecified; M51.9 Unspecified thoracic, thoracolumbar and lumbosacral intervertebral disc disorder; F17.210 Nicotine dependence, cigarettes, uncomplicated | CPT/HCPCS: 99212 ==